=== PATIENT | female | born 1950 | race Two or more races ===

== ENCOUNTER → 2024-10-04 | Outpatient (CLI) | payer MEDICARE, MEDICAID, SELFPAY ==
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
== END | disposition home or self-care (01) ==
LOC: CDIM 11:44
PROVIDERS: PCP Family Medicine; Referring Provider Family Medicine; Visit Provider Family Medicine
DX: M79.661 Pain in right lower leg (principal); M25.572 Pain in left ankle and joints of left foot; S99.912S Unspecified injury of left ankle, sequela; S89.91XS Unspecified injury of right lower leg, sequela; V89.2XXS Person injured in unspecified motor-vehicle accident, traffic, sequela; Z96.651 Presence of right artificial knee joint
CPT/HCPCS: 73590; 73610

== ENCOUNTER 2025-02-15 11:00 | Outpatient (RCR) | payer MEDICARE, MEDICAID, SELFPAY ==
--- NOTE | 2025-02-07 11:26 | PTNOTE_ITS ---
PT OP Initial Eval Patient Information Outpatient Physical Therapy Treatment Date: 02/07/25 Visit Reasons: RIGHT THUMB SURGERY Medical Diagnosis: M77.8 M79.641 M25.531 M65.4 Treatment Dx #1: R hand weakness Start of Care: 02/07/25 Date of Onset: 12/08/24 Smoking Status Smoking Status: Never smoker Initial Assessment Subjective: Pt is 74 yr old [place]ish speaking female s/p R thumb IP joint screw placement x2 months. She reports the joint and finger aren't hurting but the pad of the thumb is sensitive to touch. She can do ADL's like dressing and HH chores independently but she doesn't have much strength in the hand. 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 Pt may benefit from skilled therapy and has good rehab potential to meet goals. Short Term and Rubber Block Layer Goals 1. Ind with HEP 2. Decreased induration of scar from mod to min 3. Improved research and development director strength on R to 20 lbs at least Treatment Plan 60 day POC ? 1. Manual therapy ? 2. Therex ? 3. Modalities as indicated, moist heat, ice, estim Frequency and Duration: 1-2x a week for 3 trial visits. If she's progressing continue to 12 visits Certification Dates: 02/07/25 to 04/07/25 Procedure Charges OP PT Eval Mod Complex 30 minutes: Yes
--- NOTE | 2025-02-15 17:46 | PT.ODAYNRPT ---
PT Outpatient Daily Note OP Daily Note Outpatient Physical Therapy Treatment Date: 02/15/25 Visit Reasons: RIGHT THUMB SURGERY Subjective: Same as time of evaluation Objective: See F/S for therex MT: STM incision scar x7' Assessment: Moderate, high TTP of incision scar with manual therapy Plan: Continue per POC Length of Time (minutes) of Treatment: 30 Minutes Procedure Charges Therapeutic Exercise 30 minutes: Yes
== END 2025-02-17 23:59 | disposition home or self-care (01) ==
LOC: CPTX 11:00
PROVIDERS: PCP Physician Assistant; Referring Provider Physician Assistant; Visit Provider Physician Assistant
DX: R53.1 Weakness (principal); M25.531 Pain in right wrist; M77.8 Other enthesopathies, not elsewhere classified; M79.641 Pain in right hand; M65.4 Radial styloid tenosynovitis [de Quervain]; Z98.890 Other specified postprocedural states
CPT/HCPCS: 97110; 97162

== ENCOUNTER 2025-02-23 11:00 | Outpatient (RCR) | payer MEDICARE, MEDICAID, SELFPAY ==
--- NOTE | 2025-02-21 12:50 | PT.ODAYNRPT ---
PT Outpatient Daily Note OP Daily Note Outpatient Physical Therapy Treatment Date: 02/21/25 Visit Reasons: RT thumb surgery Subjective: Doing HH chores with some pain over the scar on R thumb Objective: See F/S for therex MT: STM incision scar x5' Assessment: Moderate, high TTP of incision scar with manual therapy Plan: Continue per POC Length of Time (minutes) of Treatment: 30 Minutes Procedure Charges Therapeutic Exercise 30 minutes: Yes
--- NOTE | 2025-02-23 11:45 | PTNOTE_ITS ---
PT OP Progress/Discharge Note Date of Service: 02/23/25 Progress Note/DC Note Progress Note/Discharge Note: DC Note Patient Information Visit Reasons: RT thumb surgery Service Continue Service or Discharge: Discharge Discharge Date: 02/23/25 Status Subjective: Pt reports she can open bottles of water now with the R hand and is doing HH chores. She is ready to D/C from therapy. 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 The scar is indurated but not tender and she is using the thumb with all AdL's and can open bottles with R hand. Plan: D/C with HEP. Procedure Charges Therapeutic Exercise 30 minutes: Yes
== END 2025-03-19 23:59 | disposition home or self-care (01) ==
LOC: CPTX 11:00
PROVIDERS: PCP Physician Assistant; Referring Provider Physician Assistant; Visit Provider Physician Assistant
DX: M79.641 Pain in right hand (principal); M25.531 Pain in right wrist; M77.8 Other enthesopathies, not elsewhere classified; Z98.890 Other specified postprocedural states
CPT/HCPCS: 97110